=== PATIENT | female | born 1985 | race Caucasian/White ===

== ENCOUNTER → 2019-04-28 | Outpatient (CLI) | payer OTHER ==
--- NOTE | 2019-04-28 11:48 | REP ---
Clinical: Hypertension Technique: Alanis scale and color Doppler evaluation of the kidneys and renal vasculature using curved array transducer. Findings: The kidneys are essentially normal in contour size and echogenicity and reniform shape without hydronephrosis, nephrolithiasis, cystic or renal mass lesion. Right kidney measures 11.6 x 6.4 x 2.9 cm . Left kidney measures 10.8 x 5.0 x 4.0 cm. Bladder is incompletely distended and grossly normal by current evaluation. Incidental note is made of a 5.1 x 3.9 x 3.9 cm complex septated right adnexal cyst. Color Doppler evaluation of the renal vasculature demonstrates normal arterial wave patterns, velocities, renal aortic ratios, resistive indices and the acceleration time. No sonographic evidence for renal arterial stenosis noted. Renal vein is patent. Right Kidney: Peak arterial velocity: 136 cm/sec . Renal aortic ratio: 1.1 . Resistive indices: 0.7 . Acceleration times: 0.04 - 0.08 . Left kidney: Peak arterial velocity: 81 cm/sec . Renal aortic ratio: 0.7 . Resistive indices: 0.6 - 0.7 . Acceleration times: 0.04 - 0.05 . Impression: 1. Normal appearance to the bilateral kidneys. 2. No evidence for renal arterial stenosis. 3. Incidental complex septated right ovarian cyst may warrant followup ultrasound examination. Electronically Signed by Kwame Khan MD 04/28/2019 11:39 A
== END ==
LOC: M RAD 09:19
PROVIDERS: ATTEND Internal Medicine Cardiovascular Disease
DX: N83.291 Other ovarian cyst, right side (principal); I10 Essential (primary) hypertension